=== PATIENT | female | born 1985 | race Caucasian/White ===

== ENCOUNTER 2020-06-20 15:18 | Inpatient (IN) ==
[2020-06-20] MEDS ORDERED: Naloxone 0.4 MG/ML INJ IVP PRN (17:53)
[2020-06-20] MEDS ORDERED: Ondansetron ODT 4 MG TAB.RAPDIS SL PRN (17:53)
[2020-06-20] MEDS ORDERED: Acetaminophen 325 MG TABLET PO PRN (17:53)
[2020-06-20] MEDS ORDERED: *HR* HYDROmorphone (PF) 1 MG/ML SYRINGE IVP PRN (18:12)
[2020-06-20] MEDS: *HR* OxyCODONE Immed Rel 5 MG TABLET PO PRN (19:34)
[2020-06-20 21:25] LABS: Bacteria,Urine Few per hpf (None-Few); Bilirubin,Urine Negative (Negative); Blood,Urine Small (Negative); Clarity,Urine Clear (Clear); Color,Urine Light-Yellow (Yellow); Glucose,Urine (UA) Normal (Normal); Ketones,Urine Negative (Negative); Leukocyte Esterase,Urine Moderate (Negative); Nitrite,Urine Negative (Negative); Protein,Urine Negative (Neg-Trace); Specific Gravity,Urine 1.012 (1.010-1.025); Squamous Epithelial Cell,Urine Few per hpf (None-Few); Urobilinogen,Urine Normal (Normal)
[2020-06-20] MEDS: *HR* Heparin 5,000 UNIT/ML VIAL SQ SCH (22:05)
[2020-06-20] MEDS: OLANZapine 10 MG TAB.RAPDIS PO SCH (23:46)
[2020-06-21 05:13] LABS: Basophils # 0.1 K/mcL (0.0-0.2); Basophils % 0.7 %; Eosinophils # 0.3 K/mcL (0.0-0.6); Eosinophils % 2.5 %; Hematocrit 38.8 % (35.3-44.9); Hemoglobin 13.3 g/dL (11.5-15.4); Immature Granulocytes % 0.2 % (0-4); Lymphocytes # 2.8 K/mcL (0.6-4.6); Lymphocytes % 26.7 %; Mean Corpuscular HGB Conc 34.3 g/dL (31.6-35.5); Mean Corpuscular Hemoglobin 34.1 pg (28.0-33.3); Mean Corpuscular Volume 99.5 fL (83.0-100.0); Neutrophils # 6.2 K/mcL (1.6-8.9); Platelet Count 293 K/mcL (140-400); Red Cell Distribution Width 12.4 % (11.5-14.5); Segmented Neutrophils % 59.9 %; White Blood Count 10.4 K/mcL (4.3-11.1)
[2020-06-21 05:19] LABS: INR 1.1; Prothrombin Time 12.4 Seconds (9.4-12.1)
[2020-06-21 05:20] LABS: Activated Partial Thrombo Time 28.6 Seconds (26.0-36.0)
[2020-06-21] MEDS: *HR* Heparin 5,000 UNIT/ML VIAL SQ SCH ×3 (05:51→21:34)
[2020-06-21 05:57] LABS: Alanine Aminotransferase 54 Units/L (7-52); Albumin 3.5 g/dL (3.5-5.7); Albumin/Globulin Ratio 1.2 (1.1-2.2); Alkaline Phosphatase 72 Units/L (34-104); Aspartate Amino Transferase 51 Units/L (13-39); BUN/Creatinine Ratio 10 (6-26); Bilirubin,Total 0.5 mg/dL (0.3-1.0); Blood Urea Nitrogen 5 mg/dL (6-20); Carbon Dioxide 22 mEq/L (23-29); Chloride 106 mEq/L (98-107); Glucose 111 mg/dL (70-105); Osmolality,Calculated 280 (280-300); Potassium 3.8 mEq/L (3.5-5.1); Sodium 136 mEq/L (136-145); Total Protein 6.5 g/dL (6.4-8.9); eGFR For African Americans > 60 (> 60); eGFR For Non-African Americans > 60 (> 60)
[2020-06-21] MEDS: Nicotine 14 MG PATCH.TD24 TD SCH (09:02)
[2020-06-21] MEDS: *HR* OxyCODONE Immed Rel 5 MG TABLET PO PRN ×2 (09:02→18:10)
[2020-06-21] MEDS ORDERED: *HR* Propofol 200 MG/20 ML VIAL IVP ONE (14:02)
[2020-06-21] MEDS ORDERED: *HR* FentaNYL (PF) 100 MCG/2 ML VIAL ONE (14:03)
[2020-06-21] MEDS ORDERED: Lidocaine -MPF 2% 2 ML VIAL ONE (14:03)
[2020-06-21] MEDS ORDERED: *HR* Succinylcholine 200 MG/10 ML VIAL IVP ONE (14:03)
[2020-06-21] MEDS ORDERED: *HR* HYDROmorphone PF 0.5 MG/0.5 ML SYRINGE IVP PRN (14:16)
[2020-06-21] MEDS ORDERED: *HR* FentaNYL (PF) 100 MCG/2 ML VIAL IVP PRN (14:16)
[2020-06-21] MEDS ORDERED: Ondansetron 4 MG/2 ML VIAL IVP ONE (14:17)
[2020-06-21] MEDS ORDERED: Naloxone 0.4 MG/ML INJ IVP PRN (14:17)
[2020-06-21] MEDS ORDERED: Ondansetron 4 MG/2 ML VIAL ONE ×2 (15:55→16:41)
[2020-06-21] MEDS ORDERED: Dexamethasone 4 MG/ML VIAL ONE (15:55)
[2020-06-21] MEDS ORDERED: Indomethacin 50 MG SUPP.RECT RC ONE (16:31)
[2020-06-21] MEDS ORDERED: *HR* Promethazine 25 MG/ML VIAL IVP PRN (16:49)
[2020-06-21] MEDS ORDERED: Ringers Solution, Lactated 1,000 ML ONE (16:50)
[2020-06-21 19:59] LABS: Amylase 41 Units/L (29-103); Lipase 21 Units/L (11-82)
[2020-06-21] MEDS: OLANZapine 10 MG TAB.RAPDIS PO SCH (21:34)
[2020-06-22] MEDS: *HR* OxyCODONE Immed Rel 5 MG TABLET PO PRN ×3 (00:25→18:23)
[2020-06-22] MEDS: *HR* Heparin 5,000 UNIT/ML VIAL SQ SCH ×3 (04:58→21:13)
[2020-06-22 05:46] LABS: Basophils % 0.1 %; Hemoglobin 14.4 g/dL (11.5-15.4); Immature Granulocytes % 0.5 % (0-4); Lymphocytes # 1.6 K/mcL (0.6-4.6); Lymphocytes % 11.1 %; Mean Corpuscular HGB Conc 33.5 g/dL (31.6-35.5); Mean Corpuscular Hemoglobin 33.1 pg (28.0-33.3); Mean Corpuscular Volume 98.9 fL (83.0-100.0); Mean Platelet Volume 9.5 fL (9.4-12.4); Monocytes # 0.6 K/mcL (0.0-1.3); Monocytes % 4.6 %; Neutrophils # 11.7 K/mcL (1.6-8.9); Platelet Count 362 K/mcL (140-400); Red Blood Count 4.35 M/mcL (3.82-4.97); Red Cell Distribution Width 11.9 % (11.5-14.5); Segmented Neutrophils % 83.7 %
[2020-06-22 06:05] LABS: Alanine Aminotransferase 90 Units/L (7-52); Albumin/Globulin Ratio 1.1 (1.1-2.2); Alkaline Phosphatase 96 Units/L (34-104); Aspartate Amino Transferase 110 Units/L (13-39); BUN/Creatinine Ratio 11 (6-26); Bilirubin,Total 0.6 mg/dL (0.3-1.0); Blood Urea Nitrogen 6 mg/dL (6-20); Calcium 9.6 mg/dL (8.6-10.3); Carbon Dioxide 25 mEq/L (23-29); Chloride 105 mEq/L (98-107); Globulin 3.5 g/dL (2.4-3.5); Glucose 123 mg/dL (70-105); Magnesium 1.7 mg/dL (1.6-2.6); Osmolality,Calculated 283 (280-300); Phosphorous 2.8 mg/dL (2.7-4.5); Potassium 4.3 mEq/L (3.5-5.1); Sodium 137 mEq/L (136-145); Total Protein 7.5 g/dL (6.4-8.9); eGFR For African Americans > 60 (> 60); eGFR For Non-African Americans > 60 (> 60)
[2020-06-22] MEDS: Nicotine 14 MG PATCH.TD24 TD SCH (08:07)
[2020-06-22] MEDS ORDERED: *HR* FentaNYL (PF) 100 MCG/2 ML VIAL ONE ×2 (12:38→15:48)
[2020-06-22] MEDS ORDERED: *HR* Midazolam HCl 2 MG/2 ML VIAL ONE (12:38)
[2020-06-22] MEDS ORDERED: *HR* Propofol 200 MG/20 ML VIAL IVP ONE (12:38)
[2020-06-22] MEDS ORDERED: Lidocaine -MPF 2% 2 ML VIAL ONE (12:41)
[2020-06-22] MEDS ORDERED: Dexamethasone 4 MG/ML VIAL ONE (12:41)
[2020-06-22] MEDS ORDERED: Ondansetron 4 MG/2 ML VIAL ONE (12:41)
[2020-06-22] MEDS ORDERED: *HR* Rocuronium Bromide 50 MG/5 ML VIAL ONE ×2 (12:41→16:00)
[2020-06-22] MEDS ORDERED: *HR* Succinylcholine 200 MG/10 ML VIAL IVP ONE (12:41)
[2020-06-22] MEDS ORDERED: Lidocaine -MPF 4% 5 ML AMPUL ONE (12:42)
[2020-06-22] MEDS ORDERED: Acetaminophen IV 1,000 MG/100 ML INFUS..BTL ONE (13:41)
[2020-06-22] MEDS ORDERED: Famotidine 20 MG/2 ML VIAL ONE (13:41)
[2020-06-22] MEDS ORDERED: *HR* HYDROMORPHONE 2 MG/ML VIAL ONE (14:39)
[2020-06-22] MEDS ORDERED: ceFAZolin 3,000 MG in Water for inj. (sterile) 30 ML IVP ONE (14:47)
[2020-06-22] MEDS ORDERED: *HR* PHENYLEPHRINE 1,000 MCG/10 ML SYRINGE IVP ONE (15:28)
[2020-06-22] MEDS ORDERED: Ringers Solution, Lactated 1,000 ML IVC SCH (15:30)
[2020-06-22] MEDS ORDERED: MetroNIDAZOLE 500 MG/100 ML 500 MG/100 ML BAG IVPB SCH (16:00)
[2020-06-22] MEDS ORDERED: *HR* Promethazine 25 MG/ML VIAL IVP PRN (17:17)
[2020-06-22] MEDS ORDERED: Ondansetron 4 MG/2 ML VIAL IVP ONE (17:17)
[2020-06-22] MEDS: *HR* HYDROmorphone PF 0.5 MG/0.5 ML SYRINGE IVP PRN ×3 (17:27→17:37)
[2020-06-22] MEDS ORDERED: Naloxone 0.4 MG/ML INJ IVP PRN (18:08)
[2020-06-22] MEDS ORDERED: Ondansetron ODT 4 MG TAB.RAPDIS SL PRN (18:08)
[2020-06-22] MEDS ORDERED: Acetaminophen 325 MG TABLET PO PRN (18:08)
[2020-06-22] MEDS: MetroNIDAZOLE 500 MG/100 ML 500 MG/100 ML BAG IVPB SCH (21:08)
[2020-06-22] MEDS: OLANZapine 10 MG TAB.RAPDIS PO SCH (21:11)
[2020-06-23] MEDS: *HR* OxyCODONE Immed Rel 5 MG TABLET PO PRN ×4 (00:42→18:46)
[2020-06-23 01:28] LABS: Basophils % 0.1 %; Hematocrit 40.5 % (35.3-44.9); Hemoglobin 13.6 g/dL (11.5-15.4); Immature Granulocytes % 0.6 % (0-4); Lymphocytes # 1.4 K/mcL (0.6-4.6); Mean Corpuscular HGB Conc 33.6 g/dL (31.6-35.5); Mean Corpuscular Hemoglobin 33.9 pg (28.0-33.3); Mean Platelet Volume 9.4 fL (9.4-12.4); Monocytes # 1.4 K/mcL (0.0-1.3); Monocytes % 6.1 %; Neutrophils # 20.4 K/mcL (1.6-8.9); Platelet Count 333 K/mcL (140-400); Red Blood Count 4.01 M/mcL (3.82-4.97); Red Cell Distribution Width 12.3 % (11.5-14.5); Segmented Neutrophils % 87.2 %; White Blood Count 23.4 K/mcL (4.3-11.1)
[2020-06-23 01:47] LABS: Albumin 3.7 g/dL (3.5-5.7); Albumin/Globulin Ratio 1.1 (1.1-2.2); Bilirubin,Direct 0.1 mg/dL (0.0-0.2); Bilirubin,Indirect 0.3 mg/dL (0.0-1.0); Bilirubin,Total 0.4 mg/dL (0.3-1.0); Globulin 3.3 g/dL (2.4-3.5)
[2020-06-23 01:49] LABS: BUN/Creatinine Ratio 12 (6-26); Blood Urea Nitrogen 9 mg/dL (6-20); Calcium 9.3 mg/dL (8.6-10.3); Carbon Dioxide 23 mEq/L (23-29); Chloride 103 mEq/L (98-107); Glucose 178 mg/dL (70-105); Osmolality,Calculated 287 (280-300); Potassium 4.5 mEq/L (3.5-5.1); Sodium 137 mEq/L (136-145); eGFR For African Americans > 60 (> 60); eGFR For Non-African Americans > 60 (> 60)
[2020-06-23] MEDS: MetroNIDAZOLE 500 MG/100 ML 500 MG/100 ML BAG IVPB SCH (03:42)
[2020-06-23] MEDS: *HR* Heparin 5,000 UNIT/ML VIAL SQ SCH ×3 (04:47→20:27)
[2020-06-23] MEDS: Nicotine 14 MG PATCH.TD24 TD SCH (09:09)
[2020-06-23] MEDS: Piperacillin/Tazobactam 3.375 GM in 0.9 % Sodium Chloride Mini Bag 100 ML IVPB SCH ×2 (11:52→18:42)
[2020-06-23] MEDS: Ringers Solution, Lactated 1,000 ML IVC SCH ×2 (12:02→13:04)
[2020-06-23] MEDS: OLANZapine 10 MG TAB.RAPDIS PO SCH (20:26)
[2020-06-24] MEDS: *HR* OxyCODONE Immed Rel 5 MG TABLET PO PRN ×3 (01:36→14:50)
[2020-06-24] MEDS: Piperacillin/Tazobactam 3.375 GM in 0.9 % Sodium Chloride Mini Bag 100 ML IVPB SCH (03:39)
[2020-06-24] MEDS: *HR* Heparin 5,000 UNIT/ML VIAL SQ SCH (03:42)
[2020-06-24 05:35] LABS: Basophils # 0.1 K/mcL (0.0-0.2); Basophils % 0.5 %; Eosinophils # 0.1 K/mcL (0.0-0.6); Eosinophils % 0.3 %; Hematocrit 38.2 % (35.3-44.9); Hemoglobin 12.7 g/dL (11.5-15.4); Immature Granulocytes % 0.7 % (0-4); Lymphocytes # 3.6 K/mcL (0.6-4.6); Lymphocytes % 23.9 %; Mean Corpuscular HGB Conc 33.2 g/dL (31.6-35.5); Mean Corpuscular Hemoglobin 33.8 pg (28.0-33.3); Mean Corpuscular Volume 101.6 fL (83.0-100.0); Mean Platelet Volume 9.1 fL (9.4-12.4); Monocytes # 1.5 K/mcL (0.0-1.3); Monocytes % 10.3 %; Neutrophils # 9.6 K/mcL (1.6-8.9); Platelet Count 271 K/mcL (140-400); Red Blood Count 3.76 M/mcL (3.82-4.97); Red Cell Distribution Width 12.4 % (11.5-14.5); Segmented Neutrophils % 64.3 %
[2020-06-24 05:52] LABS: BUN/Creatinine Ratio 17 (6-26); Blood Urea Nitrogen 10 mg/dL (6-20); Calcium 8.5 mg/dL (8.6-10.3); Carbon Dioxide 25 mEq/L (23-29); Chloride 107 mEq/L (98-107); Glucose 133 mg/dL (70-105); Osmolality,Calculated 287 (280-300); Potassium 4.1 mEq/L (3.5-5.1); Sodium 138 mEq/L (136-145); eGFR For African Americans > 60 (> 60); eGFR For Non-African Americans > 60 (> 60)
[2020-06-24] MEDS: Nicotine 14 MG PATCH.TD24 TD SCH (08:42)
[2020-06-24 11:00] VITALS: BP 101/67
== END 2020-06-24 16:50 | disposition home or self-care (01) | DRG 263 ==
LOC: 3BNU → SUATTDRO 16:57
PROVIDERS: ADMIT Internal Medicine; ATTEND Student in an Organized Health Care Education/Training Program